=== PATIENT | male | born 1945 | race Caucasian/White ===

== ENCOUNTER 2016-05-05 07:25 | Outpatient (CLI) | payer MEDICARE, OTHER | END 2016-05-05 07:26 | disposition home or self-care (01) | DX: E11.9 Type 2 diabetes mellitus without complications (principal); E83.119 Hemochromatosis, unspecified ==

== ENCOUNTER 2016-12-01 11:07 | Outpatient (CLI) | payer MEDICARE, OTHER ==
[2016-12-01 11:39] LABS: BASOPHILS % (AUTO) 0.8 %; EOSINOPHILS # (AUTO) 0.1 10^3/uL (0.0-0.7); EOSINOPHILS % (AUTO) 1.2 %; HCT - HEMATOCRIT 40.4 % (42.0-52.0); HGB - HEMOGLOBIN 14.3 g/dL (14.0-18.0); LYMPHOCYTES # (AUTO) 0.8 10^3/uL (1.5-3.5); LYMPHOCYTES % (AUTO) 19.2 %; MEAN CORPUSCULAR HEMOGLOBIN 41.4 pg (27.0-31.0); MEAN CORPUSCULAR HGB CONC 35.4 g/dL (32.0-36.0); MEAN PLATELET VOLUME 7.6 fL (7.4-11.4); MONOCYTES # (AUTO) 0.3 10^3/uL (0.0-1.0); MONOCYTES % (AUTO) 7.5 %; NEUTROPHILS # (AUTO) 3.1 10^3/uL (1.5-6.6); NEUTROPHILS % (AUTO) 71.3 %; RED BLOOD COUNT 3.46 10^6/uL (4.70-6.10); RED CELL DISTRIBUTION WIDTH 14.4 % (12.0-15.0); UNCORRECTED WHITE BLOOD COUNT 4.4 x10^3/uL; WHITE BLOOD COUNT 4.4 x10^3/uL (4.8-10.8)
== END 2016-12-01 11:08 | disposition home or self-care (01) ==
LOC: LAB 11:07
PROVIDERS: ATTEND Internal Medicine Hematology & Oncology
DX: E83.119 Hemochromatosis, unspecified (principal)
CPT/HCPCS: 36415; 82728; 85025

== ENCOUNTER 2016-12-09 07:05 | Outpatient (CLI) | payer MEDICARE, OTHER ==
[2016-12-09 07:39] LABS: CALCIUM 9.9 mg/dL (8.5-10.3); CREATININE 0.9 mg/dL (0.6-1.2); POTASSIUM 3.7 mmol/L (3.5-5.0)
[2016-12-09 08:19] LABS: HEMOGLOBIN A1C 0.89 g/dL
== END 2016-12-09 07:06 | disposition home or self-care (01) ==
LOC: LAB 07:05
PROVIDERS: ATTEND Internal Medicine
DX: E11.9 Type 2 diabetes mellitus without complications (principal)
CPT/HCPCS: 36415; 80048; 83036

== ENCOUNTER 2017-03-12 11:47 | Outpatient (CLI) | payer MEDICARE, OTHER ==
[2017-03-12 12:20] LABS: BASOPHILS # (AUTO) 0.1 10^3/uL (0.0-0.1); BASOPHILS % (AUTO) 1.2 %; EOSINOPHILS # (AUTO) 0.1 10^3/uL (0.0-0.7); EOSINOPHILS % (AUTO) 1.4 %; HCT - HEMATOCRIT 37.2 % (42.0-52.0); HGB - HEMOGLOBIN 13.4 g/dL (14.0-18.0); LYMPHOCYTES # (AUTO) 0.8 10^3/uL (1.5-3.5); MEAN CORPUSCULAR HEMOGLOBIN 42.8 pg (27.0-31.0); MEAN CORPUSCULAR HGB CONC 35.9 g/dL (32.0-36.0); MEAN CORPUSCULAR VOLUME 119.3 fL (80.0-94.0); MEAN PLATELET VOLUME 7.3 fL (7.4-11.4); MONOCYTES # (AUTO) 0.3 10^3/uL (0.0-1.0); MONOCYTES % (AUTO) 6.5 %; NEUTROPHILS # (AUTO) 3.6 10^3/uL (1.5-6.6); NEUTROPHILS % (AUTO) 74.9 %; NUCLEATED RED BLOOD CELLS AUTO 0.1 /100WBC; RED BLOOD COUNT 3.12 10^6/uL (4.70-6.10); RED CELL DISTRIBUTION WIDTH 14.7 % (12.0-15.0); UNCORRECTED WHITE BLOOD COUNT 4.9 x10^3/uL; WHITE BLOOD COUNT 4.9 x10^3/uL (4.8-10.8)
[2017-03-12 13:03] LABS: PLATELET ESTIMATE, MANUAL INCREASED (>450,000) (NORMAL); PLATELET MORPHOLOGY NORMAL APPEARANCE (NORMAL)
[2017-03-12 13:05] LABS: WBC MORPHOLOGY (MULTIPLE) 2+ HYPERSEG NEUT (NORMAL)
== END 2017-03-12 11:48 | disposition home or self-care (01) ==
LOC: LAB 11:47
PROVIDERS: ATTEND Internal Medicine Hematology & Oncology
DX: D47.3 Essential (hemorrhagic) thrombocythemia (principal)
CPT/HCPCS: 82728; 85025

== ENCOUNTER 2017-05-04 09:32 | Outpatient (CLI) | payer MEDICARE, OTHER ==
[2017-05-04 10:00] LABS: HEMOGLOBIN A1C 0.85 g/dL; HEMOGLOBIN A1C % 7.3 % (4.6-6.2)
[2017-05-04 10:32] LABS: CREATININE,URINE 85.2 mg/dL; PROTEIN/CREATININE RATIO,URINE 0.4 (<=0.2)
== END 2017-05-04 09:33 | disposition home or self-care (01) ==
LOC: LAB 09:32
PROVIDERS: ATTEND Nurse Practitioner
DX: E11.65 Type 2 diabetes mellitus with hyperglycemia (principal); Z79.4 Long term (current) use of insulin
CPT/HCPCS: 36415; 82570; 83036; 84156

== ENCOUNTER 2017-05-21 10:58 | Outpatient (CLI) | payer MEDICARE, OTHER ==
[2017-05-21 11:22] LABS: BASOPHILS # (AUTO) 0.1 10^3/uL (0.0-0.1); BASOPHILS % (AUTO) 2.3 %; EOSINOPHILS # (AUTO) 0.1 10^3/uL (0.0-0.7); EOSINOPHILS % (AUTO) 1.3 %; HGB - HEMOGLOBIN 13.4 g/dL (14.0-18.0); LYMPHOCYTES # (AUTO) 0.7 10^3/uL (1.5-3.5); LYMPHOCYTES % (AUTO) 15.8 %; MEAN CORPUSCULAR HEMOGLOBIN 42.2 pg (27.0-31.0); MEAN CORPUSCULAR HGB CONC 35.5 g/dL (32.0-36.0); MEAN CORPUSCULAR VOLUME 119.1 fL (80.0-94.0); MEAN PLATELET VOLUME 7.5 fL (7.4-11.4); MONOCYTES # (AUTO) 0.3 10^3/uL (0.0-1.0); NEUTROPHILS # (AUTO) 3.4 10^3/uL (1.5-6.6); NEUTROPHILS % (AUTO) 74.6 %; PLT - PLATELET COUNT 481 10^3/uL (130-450); RED BLOOD COUNT 3.17 10^6/uL (4.70-6.10); RED CELL DISTRIBUTION WIDTH 13.4 % (12.0-15.0); WHITE BLOOD COUNT 4.6 x10^3/uL (4.8-10.8)
== END 2017-05-21 10:59 | disposition home or self-care (01) ==
LOC: LAB 10:58
PROVIDERS: ATTEND Internal Medicine Hematology & Oncology
DX: D47.3 Essential (hemorrhagic) thrombocythemia (principal)
CPT/HCPCS: 36415; 82728; 85025

== ENCOUNTER 2017-07-30 07:08 | Outpatient (CLI) | payer MEDICARE, OTHER ==
[2017-07-30 07:27] LABS: BASOPHILS % (AUTO) 1.1 %; EOSINOPHILS # (AUTO) 0.1 10^3/uL (0.0-0.7); EOSINOPHILS % (AUTO) 1.9 %; HGB - HEMOGLOBIN 14.2 g/dL (14.0-18.0); LYMPHOCYTES % (AUTO) 26.1 %; MEAN CORPUSCULAR HEMOGLOBIN 42.4 pg (27.0-31.0); MEAN CORPUSCULAR HGB CONC 35.2 g/dL (32.0-36.0); MEAN PLATELET VOLUME 7.2 fL (7.4-11.4); MONOCYTES # (AUTO) 0.4 10^3/uL (0.0-1.0); NEUTROPHILS # (AUTO) 2.3 10^3/uL (1.5-6.6); NEUTROPHILS % (AUTO) 60.9 %; PLT - PLATELET COUNT 447 10^3/uL (130-450); RED BLOOD COUNT 3.35 10^6/uL (4.70-6.10); RED CELL DISTRIBUTION WIDTH 14.3 % (12.0-15.0); WHITE BLOOD COUNT 3.8 x10^3/uL (4.8-10.8)
[2017-07-30 07:29] LABS: MEAN CORPUSCULAR VOLUME 120.7 fL (80.0-94.0)
[2017-07-30 08:16] LABS: RBC MORPHOLOGY (MULTIPLE) 2+ ANISOCYTOSIS (NORMAL)
== END 2017-07-30 07:09 | disposition home or self-care (01) ==
LOC: LAB 07:08
PROVIDERS: ATTEND Internal Medicine Hematology & Oncology
DX: D47.3 Essential (hemorrhagic) thrombocythemia (principal)
CPT/HCPCS: 36415; 85025

== ENCOUNTER 2017-11-06 12:42 | Outpatient (CLI) | payer MEDICARE, OTHER ==
[2017-11-06 13:11] LABS: BASOPHILS # (AUTO) 0.1 10^3/uL (0.0-0.1); BASOPHILS % (AUTO) 1.3 %; EOSINOPHILS % (AUTO) 0.7 %; LYMPHOCYTES # (AUTO) 0.7 10^3/uL (1.5-3.5); LYMPHOCYTES % (AUTO) 16.4 %; MEAN CORPUSCULAR HEMOGLOBIN 43.3 pg (27.0-31.0); MEAN CORPUSCULAR HGB CONC 36.1 g/dL (32.0-36.0); MEAN PLATELET VOLUME 7.4 fL (7.4-11.4); MONOCYTES # (AUTO) 0.3 10^3/uL (0.0-1.0); MONOCYTES % (AUTO) 6.3 %; NEUTROPHILS # (AUTO) 3.4 10^3/uL (1.5-6.6); NEUTROPHILS % (AUTO) 75.3 %; PLT - PLATELET COUNT 417 10^3/uL (130-450); RED BLOOD COUNT 3.24 10^6/uL (4.70-6.10); RED CELL DISTRIBUTION WIDTH 14.2 % (12.0-15.0); WHITE BLOOD COUNT 4.5 x10^3/uL (4.8-10.8)
[2017-11-06 13:37] LABS: MEAN CORPUSCULAR VOLUME 119.9 fL (80.0-94.0); PLATELET ESTIMATE, MANUAL NORMAL (130-450,000) (NORMAL); PLATELET MORPHOLOGY NORMAL APPEARANCE (NORMAL)
== END 2017-11-06 12:43 | disposition home or self-care (01) ==
LOC: LAB 12:42
PROVIDERS: ATTEND Internal Medicine Hematology & Oncology
DX: D69.3 Immune thrombocytopenic purpura (principal); E83.119 Hemochromatosis, unspecified
CPT/HCPCS: 36415; 82728; 85025

== ENCOUNTER 2018-03-08 12:14 | Outpatient (CLI) | payer MEDICARE, OTHER ==
[2018-03-08 12:40] LABS: BASOPHILS % (AUTO) 1.2 %; EOSINOPHILS % (AUTO) 1.2 %; HGB - HEMOGLOBIN 13.3 g/dL (14.0-18.0); LYMPHOCYTES # (AUTO) 0.6 10^3/uL (1.5-3.5); LYMPHOCYTES % (AUTO) 15.9 %; MEAN CORPUSCULAR HEMOGLOBIN 43.8 pg (27.0-31.0); MEAN CORPUSCULAR HGB CONC 36.6 g/dL (32.0-36.0); MEAN CORPUSCULAR VOLUME 119.7 fL (80.0-94.0); MEAN PLATELET VOLUME 7.1 fL (7.4-11.4); MONOCYTES # (AUTO) 0.3 10^3/uL (0.0-1.0); MONOCYTES % (AUTO) 6.7 %; PLT - PLATELET COUNT 439 10^3/uL (130-450); RED BLOOD COUNT 3.03 10^6/uL (4.70-6.10); RED CELL DISTRIBUTION WIDTH 15.3 % (12.0-15.0)
[2018-03-08 13:49] LABS: PLATELET ESTIMATE, MANUAL NORMAL (130-450,000) (NORMAL)
== END 2018-03-08 12:15 | disposition home or self-care (01) ==
LOC: LAB 12:14
PROVIDERS: ATTEND Internal Medicine Hematology & Oncology
DX: E83.110 Hereditary hemochromatosis (principal)
CPT/HCPCS: 36415; 85025

== ENCOUNTER 2018-08-08 10:21 | Outpatient (CLI) | payer MEDICARE, OTHER ==
[2018-08-08 10:43] LABS: EOSINOPHILS # (AUTO) 0.1 10^3/uL (0.0-0.7); EOSINOPHILS % (AUTO) 1.2 %; HGB - HEMOGLOBIN 14.2 g/dL (14.0-18.0); LYMPHOCYTES # (AUTO) 0.6 10^3/uL (1.5-3.5); LYMPHOCYTES % (AUTO) 13.9 %; MEAN CORPUSCULAR HEMOGLOBIN 41.8 pg (27.0-31.0); MEAN CORPUSCULAR HGB CONC 34.6 g/dL (32.0-36.0); MEAN CORPUSCULAR VOLUME 120.8 fL (80.0-94.0); MEAN PLATELET VOLUME 7.5 fL (7.4-11.4); MONOCYTES # (AUTO) 0.3 10^3/uL (0.0-1.0); MONOCYTES % (AUTO) 6.6 %; NEUTROPHILS # (AUTO) 3.3 10^3/uL (1.5-6.6); NEUTROPHILS % (AUTO) 77.3 %; PLT - PLATELET COUNT 486 10^3/uL (130-450); RED CELL DISTRIBUTION WIDTH 14.4 % (12.0-15.0); WHITE BLOOD COUNT 4.2 x10^3/uL (4.8-10.8)
[2018-08-08 13:40] LABS: HB2 TOTAL 15.3 g/dL; HEMOGLOBIN A1C 0.78 g/dL; HEMOGLOBIN A1C % 6.8 % (4.6-6.2)
== END 2018-08-08 10:22 | disposition home or self-care (01) ==
LOC: LAB 10:21
PROVIDERS: ATTEND Nurse Practitioner
DX: D47.3 Essential (hemorrhagic) thrombocythemia (principal); E11.3319 Type 2 diabetes mellitus with moderate nonproliferative diabetic retinopathy with macular edema, unspecified eye; Z79.4 Long term (current) use of insulin
CPT/HCPCS: 36415; 83036; 84443; 85025

== ENCOUNTER 2019-12-25 06:52 | Outpatient (CLI) | payer MEDICARE, OTHER ==
[2019-12-25 07:29] LABS: BUN - BLOOD UREA NITROGEN 22 mg/dL (6-20); CALCIUM 9.8 mg/dL (8.5-10.3); CARBON DIOXIDE - CO2 26 mmol/L (21-32); CHLORIDE 101 mmol/L (101-111); CHOL/HDL RATIO 4.3 (<5.0); CHOLESTEROL 138 mg/dL; CREATININE 0.8 mg/dL (0.6-1.2); GLUCOSE 189 mg/dL (70-100); HDL CHOLESTEROL 32 mg/dL; LDL CHOLESTEROL,CALCULATED 71 mg/dL; LDL/HDL RATIO 2.2 (<3.6); SODIUM 139 mmol/L (135-145); VLDL CHOLESTEROL 35 mg/dL
[2019-12-25 07:58] LABS: BASOPHILS # (AUTO) 0.1 10^3/uL (0.0-0.1); BASOPHILS % (AUTO) 0.8 %; EOSINOPHILS # (AUTO) 0.1 10^3/uL (0.0-0.7); EOSINOPHILS % (AUTO) 1.4 %; HGB - HEMOGLOBIN 14.1 g/dL (14.0-18.0); LYMPHOCYTES # (AUTO) 1.2 10^3/uL (1.5-3.5); LYMPHOCYTES % (AUTO) 17.2 %; MEAN CORPUSCULAR HEMOGLOBIN 41.8 pg (27.0-31.0); MEAN CORPUSCULAR VOLUME 116.3 fL (80.0-94.0); MEAN PLATELET VOLUME 9.8 fL (7.4-11.4); MONOCYTES # (AUTO) 0.6 10^3/uL (0.0-1.0); MONOCYTES % (AUTO) 7.7 %; NEUTROPHILS # (AUTO) 5.1 10^3/uL (1.5-6.6); NEUTROPHILS % (AUTO) 72.3 %; PLT - PLATELET COUNT 560 10^3/uL (130-450); RED BLOOD COUNT 3.37 10^6/uL (4.70-6.10); RED CELL DISTRIBUTION WIDTH 16.8 % (12.0-15.0); WHITE BLOOD COUNT 7.1 x10^3/uL (4.8-10.8)
[2019-12-25 08:43] LABS: CREATININE,URINE 67.9 mg/dL; MICROALBUM/CREATININE RATIO,UR 101.6 ug/mg (<30.0); MICROALBUMIN,URINE 6.9 mg/dL (0-300.0)
[2019-12-25 14:30] LABS: HEMOGLOBIN A1c% 8.4 % (4.27-6.07)
== END 2019-12-25 06:53 | disposition home or self-care (01) ==
LOC: LAB 06:52
PROVIDERS: ATTEND Nurse Practitioner
DX: E11.3513 Type 2 diabetes mellitus with proliferative diabetic retinopathy with macular edema, bilateral (principal); D47.3 Essential (hemorrhagic) thrombocythemia
CPT/HCPCS: 36415; 80048; 80061; 82043; 82570; 82728; 83036; 83721; 85025

== ENCOUNTER 2020-05-02 11:32 | Outpatient (CLI) | payer MEDICARE, OTHER ==
[2020-05-02 12:00] LABS: BASOPHILS % (AUTO) 0.7 %; EOSINOPHILS # (AUTO) 0.1 10^3/uL (0.0-0.7); EOSINOPHILS % (AUTO) 2.2 %; HGB - HEMOGLOBIN 12.1 g/dL (14.0-18.0); LYMPHOCYTES # (AUTO) 0.8 10^3/uL (1.5-3.5); LYMPHOCYTES % (AUTO) 14.9 %; MEAN CORPUSCULAR HEMOGLOBIN 43.1 pg (27.0-31.0); MEAN CORPUSCULAR HGB CONC 34.6 g/dL (32.0-36.0); MEAN CORPUSCULAR VOLUME 124.6 fL (80.0-94.0); MEAN PLATELET VOLUME 9.5 fL (7.4-11.4); MONOCYTES # (AUTO) 0.4 10^3/uL (0.0-1.0); MONOCYTES % (AUTO) 7.1 %; NEUTROPHILS # (AUTO) 4.1 10^3/uL (1.5-6.6); NEUTROPHILS % (AUTO) 74.6 %; PLT - PLATELET COUNT 392 10^3/uL (130-450); RED BLOOD COUNT 2.81 10^6/uL (4.70-6.10); RED CELL DISTRIBUTION WIDTH 13.1 % (12.0-15.0); WHITE BLOOD COUNT 5.5 x10^3/uL (4.8-10.8)
[2020-05-02 12:35] LABS: ALBUMIN 4.5 g/dL (3.2-5.5); ALBUMIN/GLOBULIN RATIO 1.5 (1.0-2.2); BILIRUBIN,TOTAL 0.5 mg/dL (0.2-1.0); CALCIUM 9.8 mg/dL (8.5-10.3); TOTAL PROTEIN 7.5 g/dL (6.7-8.2)
[2020-05-02 12:52] LABS: PLATELET ESTIMATE, MANUAL NORMAL (130-450,000) (NORMAL); PLATELET MORPHOLOGY 1+ GIANT PLATELETS (NORMAL)
== END 2020-05-02 11:33 | disposition home or self-care (01) ==
LOC: LAB 11:32
PROVIDERS: ATTEND Internal Medicine Hematology & Oncology
DX: D47.3 Essential (hemorrhagic) thrombocythemia (principal)
CPT/HCPCS: 36415; 80053; 83540; 84466; 85025

== ENCOUNTER 2023-08-06 08:00 | Outpatient (CLI) | payer MEDICARE, OTHER ==
--- NOTE | 2023-08-06 15:43 | XRAY Report ---
PROCEDURE: Chest 2V INDICATIONS: SOB AND COUGH TECHNIQUE: 2 views of the chest were acquired. COMPARISON: None. FINDINGS: Surgical changes and devices: None. Lungs and pleura: Right lower lobe infiltrate and small right pleural effusion. No pleural effusions or pneumothorax. Mediastinum: Mediastinal contours appear normal. Heart size is normal. Bones and chest wall: No suspicious bony lesions. Overlying soft tissues appear unremarkable. IMPRESSION: Right lower lobe infiltrate and small right pleural effusion suspicious for pneumonia. Reviewed by: Melly Shook MD on 08/06/2023 3:42 PM PDT Approved by: Melly Shook MD on 08/06/2023 3:42 PM PDT Station ID: [id number]
== END 2023-08-06 08:15 | disposition home or self-care (01) ==
LOC: DI.N 08:00
PROVIDERS: ATTEND Physician Assistant Medical
DX: R91.8 Other nonspecific abnormal finding of lung field (principal); J90 Pleural effusion, not elsewhere classified

== ENCOUNTER 2023-08-06 08:00 | Outpatient (CLI) | payer MEDICARE, OTHER | END 2023-08-06 08:01 | disposition home or self-care (01) | LOC: LAB.N 08:00 | PROVIDERS: ATTEND Physician Assistant Medical | DX: J40 Bronchitis, not specified as acute or chronic (principal) ==

== ENCOUNTER 2023-09-28 06:52 | Emergency (ER) | payer MEDICARE, OTHER ==
--- NOTE | 2023-09-28 07:27 | ED Physician Documentation ---
PD HPI ABD PAIN - Stated complaint Stated Complaint: ABD PX - Chief complaint Chief Complaint: Abd Pain - History obtained from History obtained from: Patient - History of Present Illness Timing - onset: Last night Timing - duration: Hours (12) Timing - details: Abrupt onset, Still present, Waxing and waning Quality: Cramping, Aching, Pain PD PAST MEDICAL HISTORY - Past Medical History Past Medical History: Yes Cardiovascular: Hypertension Endocrine/Autoimmune: Type 2 diabetes Musculoskeletal: Other - Past Surgical History Past Surgical History: No Ortho: Other - Present Medications Home Medications: Ambulatory Orders Medication Instructions Recorded Confirmed Acetaminophen [Tylenol] 2 tab PO BID 09/28/23 09/28/23 Albuterol Sulf [Ventolin Hfa 2 puffs INH Q4HR PRN 09/28/23 09/28/23 Inhaler] Amlodipine Besylate [Norvasc] 10 mg PO DAILY 09/28/23 09/28/23 Anagrelide HCl 0.5 mg PO DAILY 09/28/23 09/28/23 Aspirin EC [Ecotrin] 81 mg PO DAILY 09/28/23 09/28/23 Atenolol [Tenormin] 50 mg PO DAILY 09/28/23 09/28/23 Cholecalciferol [Vitamin D3] 25 mcg PO DAILY 09/28/23 09/28/23 Docusate Sodium 100Mg Capsule 100 mg PO DAILY #20 cap 09/28/23 [Colace 100Mg Capsule] Fluorouracil [Carac] 1 applic TP PRN PRN 09/28/23 09/28/23 Hydralazine HCl 50 mg PO DAILY 09/28/23 09/28/23 Hydroxyurea [Hydrea] 1,000 mg PO DAILY 09/28/23 09/28/23 Ibuprofen 400 mg PO BID 09/28/23 09/28/23 Imiquimod 1 applic TP PRN PRN 09/28/23 09/28/23 Insulin Detemir [Levemir Flexpen] 26 units ORAL DAILY 09/28/23 09/28/23 Liraglutide [Victoza 2-Grover] 1.8 ml SUBQ DAILY 09/28/23 09/28/23 Lisinopril [Zestril] 10 mg PO DAILY 09/28/23 09/28/23 Mecobalamin [B12 Active] 1,000 mcg PO DAILY 09/28/23 09/28/23 Metoprolol Succinate 100 mg PO DAILY 09/28/23 09/28/23 NIFEdipine [Nifedipine ER] 60 mg PO DAILY 09/28/23 09/28/23 Simvastatin [Zocor] 10 mg PO DAILY 09/28/23 09/28/23 Tamsulosin [Flomax] 0.4 mg PO DAILY 09/28/23 09/28/23 cloNIDine [Catapres] 0.1 mg PO BID 09/28/23 09/28/23 hydroCHLOROthiazide [Hydrodiuril] 25 mg PO DAILY 09/28/23 09/28/23 metFORMIN [Glucophage] 1,000 mg PO BIDWM 09/28/23 09/28/23 - Allergies Allergies/Adverse Reactions: Allergies Allergy/AdvReac Type Severity Reaction Status Date / Time succinylcholine Allergy Unknown Unknown Verified 09/28/23 07:01 - Social History Does the pt smoke?: No Smoking Status: Never smoker PD ED PE NORMAL - Vitals Vital signs reviewed: Yes - General General: Alert and oriented X 3, Well developed/nourished, Other (apepars in considerable pain left abd. ) - Cardiac Cardiac: RRR, No murmur - Respiratory Respiratory: No respiratory distress, Clear bilaterally - Abdomen Abdomen: Soft, Non distended, No organomegaly, Other (tender with guarding but n ot percussion tender Lew[place] upper abd. ). No: Normal bowel sounds (diminished) - Male Male : Deferred - Rectal Rectal: Deferred - Back Back: No CVA TTP - Derm Derm: Normal color, Warm and dry, No rash - Neuro Neuro: Alert and oriented X 3, Normal speech Results - Vitals Vitals: Oxygen O2 Source Room air - Labs Labs: Laboratory Tests 09/28/23 09/28/23 09/28/23 07:20 07:30 07:30 WBC 9.9 RBC 3.22 L Hgb 13.1 L Hct 38.1 L MCV 118.3 H MCH 40.7 H MCHC 34.4 RDW 13.8 Plt Count 631 H MPV 9.5 Neut # (Auto) 8.7 H Lymph # (Auto) 0.7 L [place] # (Auto) 0.4 Eos # (Auto) 0.0 Baso # (Auto) 0.0 Absolute Nucleated RBC 0.00 Nucleated RBC % 0.0 Manual Slide Review Indicated Platelet Estimate INCREASED (>450,000) Platelet Morphology NORMAL APPEARANCE RBC Morph Micro Appear 3+ MACROCYTOSIS Sodium 140 Potassium 3.4 L Chloride 104 Carbon Dioxide 27 Anion Gap 9.0 BUN 22 H Creatinine 0.8 Estimated GFR (MDRD) 93 Glucose 220 H Calcium 10.3 Total Bilirubin 0.5 AST 12 ALT 11 Alkaline Phosphatase 35 L Total Protein 7.6 Albumin 4.6 Globulin 3.0 Albumin/Globulin Ratio 1.5 Lipase 27 Urine Color YELLOW Urine Clarity CLEAR Urine pH 7.0 Ur Specific [place] 1.025 Urine Protein 100 H Urine Glucose (UA) 100 H Urine Ketones TRACE Urine Occult Blood TRACE-INTA Urine Nitrite NEGATIVE Urine Bilirubin NEGATIVE Urine Urobilinogen 0.2 (NORMAL) Ur Leukocyte Esterase NEGATIVE Urine RBC 0-5 Urine WBC 4-5 Ur Squamous Epith Cells NONE SEEN Urine Bacteria Rare Urine Casts 0-2 Hyaline Casts Ur Microscopic Review INDICATED Urine Culture Comments NOT INDICATED - Rads (name of study) abd/pelvic CT Relevant Findings:: Prelim report reviewed (diverticula without diverticulosis. Copious stool burden. Incidental gallstones with distended GB (not tender/pain RUQ), pancreatic nodule, renal cyst, and enlarged kidney pelvis bilaterally, likely congenital, without any ureteral blockages. ), EMP independent interpretation of test PD Medical Decision Making - ED course Complexity details: reviewed results (CT showing copious stool burden. Most likely cause of thepain as particularly a lot in descending/sigmoid colon where he has the pain. See Rsad finding for other incidentals. ), re-evaluated patient (pain about gone with IV toradol and DIlaudid. Reivewed CT and lab findings with him. Main focus on constipation as cause. He will follow up on other findings.), considered differential (left abd pain for past 12 hours. Not tender RUQ> consider stone, diverticulitis, obstruction, other cause. Can get CT abd as too much pain consistent lcoally and needs more difinitive workup. ), d/w patient Departure - Departure Disposition: 01 Home, Self Care Clinical Impression: Left sided abdominal pain, Renal cyst, Gallstones, Constipation, Pancreatic cyst Condition: Stable Record reviewed to determine appropriate education?: Yes Instructions: ED Abdominal Pain Unkn Cause Male Prescriptions: Docusate Sodium 100Mg Capsule [Colace 100Mg Capsule] 100 mg PO DAILY #20 cap Comments: Your CT scan showed multiple incidental findings not related to your current pain. The visual of your CT scan and the commentary from the radiology report is a copious amount of stool particular in the transverse and descending colon which is the most likely cause for the pain you are having. The increased stool burden can cause stretching and cramping of the intestines locally. We did give you some extra medicine here. I would suggest at home that you do the MiraLAX type medicine 1 dose (17 g capful in water) every couple of hours through the afternoon and evening until you are having soft stool movements. You can also use for pain, Tylenol and/or ibuprofen in combination. Subsequently if you are having improved symptoms and reasonable amount of stool out today into tomorrow, I would continue then with the MiraLAX dosing once or twice daily combined with the docusate stool softener and some type of fiber supplement as well. See if that keeps you more regular. Return as needed. The incidental findings on your CT were some gallstones in your gallbladder but no signs of acute gallbladder inflammation. There was also some cyst in your liver which is typically benign. There is a small cyst in your pancreas which is commonly benign. Suggestion was potential outpatient MRI to ensure and that can be evaluated by your primary care. Also noted on the scan was some enlargement of the initial out flow from the kidneys which is likely long-term or congenital and not an acute process or problem. There are no signs of kidney stones. Follow-up with your primary care if the belly pain part is not improved in the next day or 2 and return if worsening. Forms: PCP List Discharge Date/Time: 09/28/23 12:30
[2023-09-28] MEDS: KETOROLAC 15 MG/ML VIAL IVP STA (07:59)
[2023-09-28] MEDS: SODIUM CHLORIDE 0.9% 1,000 ML IV STA (07:59)
[2023-09-28] MEDS: ONDANSETRON 4 MG/2 ML VIAL IVP STA (07:59)
[2023-09-28 08:00] LABS: BILIRUBIN,URINE NEGATIVE (NEGATIVE); GLUCOSE, URINE (UA) 100 mg/dL (NEGATIVE); KETONES,URINE (UA) TRACE mg/dL (NEGATIVE); LEUKOCYTE ESTERASE, URINE NEGATIVE (NEGATIVE); NITRITE,URINE NEGATIVE (NEGATIVE); OCCULT BLOOD,URINE TRACE-INTA (NEGATIVE); PROTEIN,URINE 100 mg/dL (NEGATIVE); UROBILINOGEN,URINE 0.2 (NORMAL) E.U./dL (NORMAL)
[2023-09-28] MEDS: HYDROmorphone 1 MG/ML CARPUJECT IVP STA ×2 (08:00→11:13)
[2023-09-28 08:03] LABS: CLARITY,URINE CLEAR (CLEAR)
[2023-09-28 08:07] LABS: ALBUMIN 4.6 g/dL (3.2-5.5); ALBUMIN/GLOBULIN RATIO 1.5 (1.0-2.2); BILIRUBIN,TOTAL 0.5 mg/dL (0.2-1.0); CALCIUM 10.3 mg/dL (8.5-10.3); CREATININE 0.8 mg/dL (0.6-1.3); POTASSIUM 3.4 mmol/L (3.5-4.5); TOTAL PROTEIN 7.6 g/dL (6.4-8.9)
[2023-09-28 08:08] LABS: BACTERIA,URINE Rare /HPF (None Seen); CASTS, URINE 0-2 Hyaline Casts /LPF; RBC,URINE 0-5 /HPF (0-5); SQUAMOUS EPITHELIAL CELL,UR NONE SEEN (<= Few)
[2023-09-28 08:24] LABS: BASOPHILS % (AUTO) 0.4 %; EOSINOPHILS % (AUTO) 0.1 %; HCT - HEMATOCRIT 38.1 % (42.0-52.0); HGB - HEMOGLOBIN 13.1 g/dL (14.0-18.0); LYMPHOCYTES # (AUTO) 0.7 10^3/uL (1.5-3.5); LYMPHOCYTES % (AUTO) 6.8 %; MEAN CORPUSCULAR HEMOGLOBIN 40.7 pg (27.0-31.0); MEAN CORPUSCULAR HGB CONC 34.4 g/dL (32.0-36.0); MEAN CORPUSCULAR VOLUME 118.3 fL (80.0-94.0); MEAN PLATELET VOLUME 9.5 fL (7.4-11.4); MONOCYTES # (AUTO) 0.4 10^3/uL (0.0-1.0); MONOCYTES % (AUTO) 3.8 %; NEUTROPHILS # (AUTO) 8.7 10^3/uL (1.5-6.6); NEUTROPHILS % (AUTO) 88.2 %; PLT - PLATELET COUNT 631 10^3/uL (130-450); RED BLOOD COUNT 3.22 10^6/uL (4.70-6.10); RED CELL DISTRIBUTION WIDTH 13.8 % (12.0-15.0); WHITE BLOOD COUNT 9.9 x10^3/uL (4.8-10.8)
[2023-09-28 08:26] LABS: SLIDE REVIEW? Indicated
[2023-09-28] MEDS ORDERED: iohexoL-300 100 ML VIAL ONE (08:39)
[2023-09-28 08:45] LABS: PLATELET ESTIMATE, MANUAL INCREASED (>450,000) (NORMAL); PLATELET MORPHOLOGY NORMAL APPEARANCE (NORMAL); RBC MORPHOLOGY (MULTIPLE) 3+ MACROCYTOSIS (NORMAL)
--- NOTE | 2023-09-28 09:33 | CT Report ---
PROCEDURE: Abdomen/Pelvis W INDICATIONS: LLQ Abdominal pain, diverticulitis suspected CONTRAST: Omni 300 100ml TECHNIQUE: After the administration of intravenous contrast, a CT scan of the abdomen and pelvis was performed. Images were recorded and evaluated at appropriate window settings. Reformats: coronal and sagittal. F or radiation dose reduction, the following was used: automated exposure control, adjustment of mA and /or kV according to patient size. COMPARISON: None. FINDINGS: Image quality: Diagnostic. Lower chest: Bilateral dependent atelectasis. Moderate coronary desiccation. Liver: No solid mass. Hepatic hypodensities, favored represent simple cysts. Gallbladder: Multiple gallstones. Gallbladder is mildly distended. Biliary tree: No intrahepatic or extrahepatic dilation, accounting for age. Spleen: No splenomegaly. Pancreas: No pancreatic ductal dilation. Cystic structure within the body of the pancreas measuring 9 mm (2/45). Adrenals: No adrenal nodule. Kidneys and ureters: Severe dilatation of the bilateral renal collecting systems the level of the ure teropelvic junction. No hydroureter. No renal cystic lesion which requires follow up. No solid mass. Stomach, bowel and peritoneum: No gastric or small bowel dilation. Possible small focal area of lumin al narrowing with wall thickening at the rectosigmoid junction versus peristalsis (2/124). No patholo gic free fluid. Large burden of stool throughout the colon. Normal appendix. Lymph nodes: No central or retroperitoneal adenopathy. Vessels: No infrarenal aortic aneurysm. Atherosclerotic vascular calcifications. Patent portal vein. PELVIS Reproductive organs: Unremarkable. Bladder: No abnormal wall thickening, accounting for underdistention. Pelvic lymph nodes: No pelvic adenopathy by size criteria. Bones: No aggressive osseous abnormality. Decreased osseous mineralization. Degenerative changes of t he spine. Other: No significant ventral or inguinal hernia. IMPRESSION: 1.Large burden of stool throughout the colon, correlate for constipation. 2.No significant diverticulosis or evidence of acute diverticulitis. 3.Possible small focal area of luminal narrowing with wall thickening of the rectosigmoid junction ve rsus peristalsis. Colonoscopy can be obtained for further evaluation. 4.Multiple gallstones with a mildly distended gallbladder. Recommend clinical correlation and conside r ultrasound for further evaluation as clinically indicated. 5.Severe dilatation of the bilateral renal collecting systems at the level of the ureteropelvic junct ion. No hydroureter. 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 Recommend correlation with prior imaging if available. 6.Cystic structure within the body of the pancreas measuring 9 mm. 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 Nonurgent pancreatic protocol MRI can be obtained for further evalua tion. Reviewed by: Shay Gurrola MD on 09/28/2023 9:32 AM PDT Approved by: Shay Gurrola MD on 09/28/2023 9:32 AM PDT Station ID: [id number]
[2023-09-28] MEDS: LACTULOSE 10 GM /15 ML UDC PO STA (11:12)
[2023-09-28] MEDS: BISACODYL 10 MG SUPP PR STA (11:12)
[2023-09-28 12:25] VITALS: BP 189/83; O2SAT 92
[2023-09-28] MEDS: iohexoL-300 100 ML VIAL IVP ONE (16:17)
== END 2023-09-28 12:30 | disposition home or self-care (01) ==
LOC: ED 06:52
DX: R10.9 Unspecified abdominal pain (principal); K59.00 Constipation, unspecified; N28.1 Cyst of kidney, acquired; K86.2 Cyst of pancreas; K80.20 Calculus of gallbladder without cholecystitis without obstruction; K76.89 Other specified diseases of liver
CPT/HCPCS: 36415; 74177; 80053; 81001; 83690; 85025; 96374; 96375; 96376; 99284; A9270; J1170; Q9967; 81003; 87086

== ENCOUNTER 2023-10-15 14:32 | Outpatient (CLI) | payer MEDICARE, OTHER ==
[2023-10-15 14:43] LABS: BASOPHILS % (AUTO) 0.9 %; EOSINOPHILS % (AUTO) 0.8 %; HCT - HEMATOCRIT 33.5 % (42.0-52.0); HGB - HEMOGLOBIN 11.3 g/dL (14.0-18.0); LYMPHOCYTES % (AUTO) 14.8 %; MEAN CORPUSCULAR HEMOGLOBIN 40.1 pg (27.0-31.0); MEAN CORPUSCULAR HGB CONC 33.7 g/dL (32.0-36.0); MEAN CORPUSCULAR VOLUME 118.8 fL (80.0-94.0); MEAN PLATELET VOLUME 8.7 fL (7.4-11.4); MONOCYTES % (AUTO) 7.2 %; NEUTROPHILS % (AUTO) 75.8 %; PLT - PLATELET COUNT 543 10^3/uL (130-450); RED BLOOD COUNT 2.82 10^6/uL (4.70-6.10); RED CELL DISTRIBUTION WIDTH 14.3 % (12.0-15.0); WHITE BLOOD COUNT 6.6 x10^3/uL (4.8-10.8)
[2023-10-15 14:57] LABS: ABNORMAL LYMPHS % (MANUAL) 0 %; BAND NEUTROPHILS % (MANUAL) 0 %
[2023-10-15 15:02] LABS: ALBUMIN 4.3 g/dL (3.2-5.5); ALBUMIN/GLOBULIN RATIO 1.7 (1.0-2.2); BILIRUBIN,TOTAL 0.4 mg/dL (0.2-1.0); CALCIUM 9.8 mg/dL (8.5-10.3); POTASSIUM 4.2 mmol/L (3.5-4.5); TOTAL PROTEIN 6.8 g/dL (6.4-8.9)
[2023-10-15 15:17] LABS: FERRITIN 43.9 ng/mL (23.9-336.2)
[2023-10-15 16:32] LABS: EOSINOPHILS # (MANUAL) 0.3 10^3/uL (0-0.7); LYMPHOCYTES # (MANUAL) 1.1 10^3/uL (1.5-3.5); LYMPHOCYTES % (MANUAL) 17 %; MONOCYTES # (MANUAL) 0.5 10^3/uL (0.0-1.0); NEUTROPHILS # (MANUAL) 4.8 10^3/uL (1.5-6.6)
[2023-10-15 16:33] LABS: PLATELET MORPHOLOGY NORMAL APPEARANCE (NORMAL)
[2023-10-15 16:34] LABS: DIFFERENTIAL COMMENT MANUAL DIFFERENTIAL; PLATELET ESTIMATE, MANUAL INCREASED (>450,000) (NORMAL)
[2023-10-15 20:55] LABS: ESTIMATED AVERAGE GLUCOSE 140 mg/dL (70-100); HEMOGLOBIN A1c% 6.5 % (4.27-6.07)
== END 2023-10-15 14:33 | disposition home or self-care (01) ==
LOC: LAB 14:32
PROVIDERS: ATTEND Internal Medicine Hematology & Oncology
DX: D47.3 Essential (hemorrhagic) thrombocythemia (principal); E83.110 Hereditary hemochromatosis; E11.65 Type 2 diabetes mellitus with hyperglycemia; Z79.4 Long term (current) use of insulin
CPT/HCPCS: 36415; 80053; 82728; 83036; 83540; 84466; 85025